=== PATIENT | male | born 2000 | race Hispanic/Latino ===

== ENCOUNTER 2023-08-06 07:07 | Emergency (ER) | payer OTHER ==
[2023-08-06] MEDS ORDERED: ONDANSETRON 4 MG/2 ML VIAL ONE (07:28)
[2023-08-06] MEDS ORDERED: KETOROLAC 30 MG/ML INJ ONE (07:28)
[2023-08-06] MEDS ORDERED: MORPHINE 4 MG/ML SYR ONE (07:29)
[2023-08-06] MEDS ORDERED: NA CHLORIDE 0.9% 1,000 ML ONE (07:29)
--- NOTE | 2023-08-06 07:45 | RAD REPORT ---
EXAM DESCRIPTION: CT - Abdomen Pelvis Wo Contrast - 08/06/2023 7:22 am CLINICAL HISTORY: Abdominal pain /left flank pain COMPARISON: None TECHNIQUE: Computed axial tomography of the abdomen and pelvis was obtained. IV and oral contrast we re not requested. All CT scans are performed using dose optimization technique as appropriate and may include automated exposure control or mA/KV adjustment according to patient size. FINDINGS: The evaluation of solid organs, vessels and bowel is limited secondary to the lack of con trast administration. Mild left hydronephrosis. Left ureter mildly dilated. A 4 millimeter calculus distal left ureter. The liver, spleen, pancreas, adrenals and left kidney appear grossly normal. The appendix is normal. There is no evidence of diverticulitis. Mild compression deformity L1 vertebral body appears chronic. It could be secondary to previous traum a or congenital IMPRESSION: 4 millimeter calculus distal left ureter results in mild left hydronephrosis
[2023-08-06 07:54] LABS: Absolute Eosinophils 0.1 K/uL (0-0.5); Absolute Lymphocytes (CBC) 1.4 K/uL (0.7-4.9); Absolute Monocytes 0.7 K/uL (0.1-1.3); Absolute Neutrophil 12.7 K/uL (1.8-8.0); Basophils % 0.2 % (0-1.3); Eosinophils % 0.5 % (0-4.4); Hemoglobin 16.2 g/dL (13.6-17.9); Lymphocytes % 9.6 % (15.3-44.8); MCH 29.6 pg (27.0-35.0); MCHC 33.7 g/dL (32.0-36.0); MCV 87.7 fL (80-100); MPV 8.4 fL (7.6-11.3); Monocytes % 4.7 % (3.3-12.3); Platelets 327 thou/uL (152-406); RBC Red Blood Cell Count 5.47 M/uL (4.33-5.43); Red Cell Distribution Width 13.4 % (12.1-15.2)
[2023-08-06 08:10] LABS: Albumin 4.4 g/dL (3.4-5.0); Albumin/Globulin Ratio 1.4 (1.1-1.8); Anion Gap 8.6 mEq/L (5.0-15.0); Bilirubin Total 0.9 mg/dL (0.2-1.0); Globulin 3.1 g/dL (2.3-3.5); Potassium 3.6 mEq/L (3.5-5.1); Protein, Total 7.5 g/dL (6.4-8.2)
--- NOTE | 2023-08-06 08:11 | EDPHYS ---
Physician Documentation [facility] Name: Safia Bauer Age: 23 yrs Sex: Male : 2000 Arrival Date: 08/06/2023 Time: 07:07 Bed 8 Private MD: ED Physician Reese Gonzalez HPI: 08/05 07:36 This 23 yrs old Male presents to ER via EMS with complaints of Flank Pain, kathryn Abdominal Pain. 07:36 The patient complains of pain in the right mid back and right low back. The pain kathryn radiates to the right lower quadrant. Onset: The symptoms/episode began/occurred just prior to arrival, this morning. Modifying factors: The symptoms are alleviated by nothing. the symptoms are aggravated by nothing. Associated signs and symptoms: Pertinent positives: nausea, vomiting. Severity of pain: At its worst the pain was moderate severe in the emergency department the pain has improved mildly. The patient has not experienced similar symptoms in the past. Historical: - Allergies: 07:18 No Known Allergies; ld1 - Home Meds: 07:18 None [Active]; ld1 - PMHx: 07:18 None; ld1 - PSHx: 07:18 None; ld1 - Immunization history:: Adult Immunizations up to date. - Infectious Disease History:: Denies. - Social history:: Smoking status: Patient denies any tobacco usage or history of. ROS: 07:39 Constitutional: Negative for fever, chills, and weight loss, Eyes: Negative for injury, kathryn pain, redness, and discharge, ENT: Negative for injury, pain, and discharge, Neck: Negative for injury, pain, and swelling, Cardiovascular: Negative for chest pain, palpitations, and edema, Respiratory: Negative for shortness of breath, cough, wheezing, and pleuritic chest pain, Back: Negative for injury and pain, : Negative for injury, bleeding, discharge, and swelling, MS/Extremity: Negative for injury and deformity, Skin: Negative for injury, rash, and discoloration, Neuro: Negative for headache, weakness, numbness, tingling, and seizure, Psych: Negative for depression, anxiety, suicide ideation, homicidal ideation, and hallucinations, Allergy/Immunology: Negative for hives, rash, and allergies, Endocrine: Negative for neck swelling, polydipsia, polyuria, polyphagia, and marked weight changes, Hematologic/Lymphatic: Negative for swollen nodes, abnormal bleeding, and unusual bruising, 07:39 Abdomen/GI: Positive for abdominal pain, nausea, vomiting, Exam: 07:39 Constitutional: This is a well developed, well nourished patient who is awake, alert, kathryn and in no acute distress. Head/Face: Normocephalic, atraumatic. Eyes: Pupils equal round and reactive to light, extra-ocular motions intact. Lids and lashes normal. Conjunctiva and sclera are non-icteric and not injected. Cornea within normal limits. Periorbital areas with no swelling, redness, or edema. ENT: Nares patent. No nasal discharge, no septal abnormalities noted. Tympanic membranes are normal and external auditory canals are clear. Oropharynx with no redness, swelling, or masses, exudates, or evidence of obstruction, uvula midline. Mucous membranes moist. Neck: Trachea midline, no thyromegaly or masses palpated, and no cervical lymphadenopathy. Supple, full range of motion without nuchal rigidity, or vertebral point tenderness. No Meningismus. Chest/axilla: Normal chest wall appearance and motion. Nontender with no deformity. No lesions are appreciated. Cardiovascular: Regular rate and rhythm with a normal S1 and S2. No gallops, murmurs, or rubs. Normal PMI, no JVD. No pulse deficits. Respiratory: Lungs have equal breath sounds bilaterally, clear to auscultation and percussion. No rales, rhonchi or wheezes noted. No increased work of breathing, no retractions or nasal flaring. Abdomen/GI: Soft, non-tender, with normal bowel sounds. No distension or tympany. No guarding or rebound. No evidence of tenderness throughout. Male : Normal genitalia with no discharge or lesions. Skin: Warm, dry with normal turgor. Normal color with no rashes, no lesions, and no evidence of cellulitis. 07:39 Back: pain, that is moderate, ROM is normal, kyphosis, CVA tenderness, that is mild, is noted on the right, muscle spasm, is not present, Vital Signs: 07:17 BP 137 / 115; Pulse 67; Resp 18; Temp 98.7(TE); Pulse Ox 100% on R/A; Weight 86.18 kg; ld1 Height 5 ft. 10 in. ; Pain 7/10; 07:42 BP 137 / 80; Pulse 71; Resp 18; Pulse Ox 100% on R/A; ph 08:13 BP 129 / 79; Pulse 95; Resp 18; Temp 98; Pulse Ox 99% ; ph 08:41 BP 119 / 76; Pulse 84; Resp 18; Pulse Ox 100% on R/A; Pain 1/10; ld1 07:17 Body Mass Index 27.26 (86.18 kg, 177.8 cm) ld1 07:17 Pain Scale: Adult ld1 08:41 Pain Scale: Adult ld1 MDM: 07:11 Patient medically screened. kathryn 07:40 Differential diagnosis: nephrolithiasis, pyelonephritis, UTI. Data reviewed: vital kathryn signs, nurses notes, lab test result(s), radiologic studies, CT scan. Consideration of Admission/Observation Escalation of care including admission/observation considered. I considered the following discharge prescriptions or medication management in the emergency department Medications were administered in the Emergency Department. See MAR. Test considered but Not performed: Ultrasound no renal usg. Historians other than the Patient: pt well informed. Care significantly affected by the following chronic conditions: none. 08/05 07:11 Order name: CBC with Diff; Complete Time: 08:10 sp4 08/05 07:11 Order name: CMP; Complete Time: 08:11 sp4 08/05 07:11 Order name: Lipase; Complete Time: 08:11 sp4 08/05 07:11 Order name: Urinalysis w/ reflexes sp4 08/05 07:11 Order name: CT Abd/Pelvis - Without Contrast; Complete Time: 08:10 sp4 08/05 07:11 Order name: IV Saline Lock; Complete Time: 07:25 sp4 08/05 07:11 Order name: Labs collected and sent; Complete Time: 07:25 sp4 Administered Medications: 07:48 Drug: NS 0.9% IV 1000 ml IV at 1 bolus Per protocol; 1000 mL bolus Route: IV; Rate: 1 ld1 bolus; Site: left antecubital; 07:48 Drug: TORadol - Ketorolac IVP 15 mg IVP once Route: IVP; Site: left antecubital; ld1 08:13 Follow up: Response: No adverse reaction ph 07:48 Drug: Ondansetron IVP 4 mg IVP once; over 2 minutes Route: IVP; Site: left antecubital; ld1 08:13 Follow up: Response: No adverse reaction ph 07:48 Drug: morphine IVP or IV 4 mg IVP once over 4 mins Route: IVP; Infused Over: 4 mins; ld1 Site: left antecubital; 08:13 Follow up: Response: No adverse reaction ph Disposition Summary: 08/06/23 08:11 Discharge Ordered Notes: Location: Home kathryn Problem: new kathryn Symptoms: have improved kathryn Condition: Stable kathryn Diagnosis - Hydronephrosis with renal and ureteral calculous obstruction - 4 mm distal kathryn left(08/06/23 08:11) - Elevated white blood cell count kathryn Followup: kathryn - With: Private Physician - When: 2 - 3 days - Reason: Recheck today's complaints, Continuance of care, Re-evaluation by your physician Followup: kathryn - With: Daniel Crandall MD - When: 2 - 3 days - Reason: Recheck today's complaints, Re-evaluation by your physician Discharge Instructions: - Discharge Summary Sheet kathryn - Kidney Stones kathryn - Kidney Stones, [id number] kathryn - Hydronephrosis kathryn - Dietary Guidelines to Help Prevent Kidney Stones kathryn Forms: - Medication Reconciliation Form kathryn - Antibiotic Education kathryn - Prescription Opioid Use kathryn - Patient Portal Instructions [facility] - Leadership Thank You Letter [facility] Prescriptions: - acetaminophen-codeine 300-30 mg Oral tablet - take 2 tablet ORAL route every 6 hours; 20 tablet; Refills: 0, Product [facility] Selection Permitted - Flomax 0.4 mg Oral capsule - take 1 capsule ORAL route every 24 hours; 20 capsule; Refills: 0, Product [facility] Selection Permitted - Zofran 4 mg Oral Tablet - take 1 tablet ORAL route every 12 hours As needed; 20 tablet; Refills: 0, [facility] Product Selection Permitted - Cipro 500 mg Oral Tablet - take 1 tablet ORAL route every 12 hours for 7 days; 14 tablet; Refills: 0, [facility] Product Selection Permitted Signatures: Dispatcher [employer] Reese Posada MD MD cha Sims, Lauren RN RN ld1 Temo Capellan MD MD sp4 Sudha Newberry RN ph Corrections: (The following items were deleted from the chart) 07:12 07:11 CBC+H.LAB.BRZ ordered. EDMS EDMS 07:12 07:11 COMPREHENSIVE METABOLIC PANEL+C.LAB.BRZ ordered. EDMS EDMS 07:12 07:11 LIPASE+C.LAB.BRZ ordered. EDMS EDMS 07:12 07:11 Urinalysis+U.LAB.BRZ ordered. EDMS EDMS 07:19 07:18 Allergies: Aspirin; ld1 ld1 08:11 08:11 Hydronephrosis with renal and ureteral calculous obstruction kathryn kathryn
--- NOTE | 2023-08-06 08:11 | ER ---
Nurse's Notes [facility] Name: Safia Bauer Age: 23 yrs Sex: Male : 2000 Arrival Date: 08/06/2023 Time: 07:07 Bed 8 Private MD: Diagnosis: Hydronephrosis with renal and ureteral calculous obstruction-4 mm distal left;Elevated white blood cell count Presentation: 08/05 07:17 Chief complaint: EMS states: Lower L flank pain radiates to abdomen. Coronavirus ld1 screen: At this time, the client does not indicate any symptoms associated with coronavirus-19. Ebola Screen: No symptoms or risks identified at this time. Initial Sepsis Screen: Does the patient meet any 2 criteria? No. Patient's initial sepsis screen is negative. Does the patient have a suspected source of infection? No. Patient's initial sepsis screen is negative. Risk Assessment: Do you want to hurt yourself or someone else? Patient reports no desire to harm self or others. Onset of symptoms was August 06, 2023. 07:17 Method Of Arrival: EMS: [facility] ld1 07:17 Acuity: [place] 3 ld1 Triage Assessment: 07:18 General: Appears in no apparent distress. comfortable, Behavior is calm, cooperative, ld1 appropriate for age. Pain: Complains of pain in left low back Pain radiates to right lower quadrant and left lower quadrant Pain currently is 8 out of 10 on a pain scale. Quality of pain is described as throbbing, Pain began suddenly. EENT: No signs and/or symptoms were reported regarding the EENT system. Neuro: Level of Consciousness is awake, alert, obeys commands, Oriented to person, place, time, situation. Cardiovascular: Capillary refill < 3 seconds Patient's skin is warm and dry. Respiratory: Airway is patent Respiratory effort is even, unlabored. GI: Abdomen is round non-distended. : Reports pain in left flank(s). Derm: No signs and/or symptoms reported regarding the dermatologic system. Musculoskeletal: No signs and/or symptoms reported regarding the musculoskeletal system. Historical: - Allergies: 07:18 No Known Allergies; ld1 - Home Meds: 07:18 None [Active]; ld1 - PMHx: 07:18 None; ld1 - PSHx: 07:18 None; ld1 - Immunization history:: Adult Immunizations up to date. - Infectious Disease History:: Denies. - Social history:: Smoking status: Patient denies any tobacco usage or history of. Screenin:22 [facility] ED Fall Risk Assessment (Adult) History of falling in the last 3 months, ld1 including since admission No falls in past 3 months (0 pts). Abuse screen: Denies threats or abuse. Denies injuries from another. Nutritional screening: No deficits noted. Tuberculosis screening: No symptoms or risk factors identified. Assessment: 07:22 Reassessment: See triage assessment. ld1 08:13 Reassessment: Patient appears in no apparent distress at this time. Patient and/or ph family updated on plan of care and expected duration. Pain level reassessed. Patient is alert, oriented x 3, equal unlabored respirations, skin warm/dry/pink. Vital Signs: 07:17 BP 137 / 115; Pulse 67; Resp 18; Temp 98.7(TE); Pulse Ox 100% on R/A; Weight 86.18 kg; ld1 Height 5 ft. 10 in. ; Pain 7/10; 07:42 BP 137 / 80; Pulse 71; Resp 18; Pulse Ox 100% on R/A; ph 08:13 BP 129 / 79; Pulse 95; Resp 18; Temp 98; Pulse Ox 99% ; ph 08:41 BP 119 / 76; Pulse 84; Resp 18; Pulse Ox 100% on R/A; Pain 1/10; ld1 07:17 Body Mass Index 27.26 (86.18 kg, 177.8 cm) ld1 07:17 Pain Scale: Adult ld1 08:41 Pain Scale: Adult ld1 ED Course: 07:10 Patient arrived in ED. ld1 07:11 Reese Gonzalez MD is Attending Physician. kathryn 07:18 Triage completed. ld1 07:18 Arm band placed on right wrist. ld1 07:22 Patient has correct armband on for positive identification. Placed in gown. Bed in low ld1 position. Call light in reach. Side rails up X2. lumber material handler on. Pulse ox on. NIBP on. Door closed. Noise minimized. Warm blanket given. 07:22 No provider procedures requiring assistance completed. ld1 07:23 CT Abd/Pelvis - Without Contrast In Process Unspecified. EDMS 07:25 Huynh, Joslyn, RN is Primary Nurse. ld1 07:42 Urinalysis w/ reflexes Sent. ld1 07:49 Inserted saline lock: 20 gauge in left antecubital area, using aseptic technique. Blood ld1 collected. 08:10 Daniel Crandall MD is Referral Physician. [facility] 08:41 IV discontinued, intact, bleeding controlled, No redness/swelling at site. ld1 Administered Medications: 07:48 Drug: NS 0.9% IV 1000 ml IV at 1 bolus Per protocol; 1000 mL bolus Route: IV; Rate: 1 ld1 bolus; Site: left antecubital; 07:48 Drug: TORadol - Ketorolac IVP 15 mg IVP once Route: IVP; Site: left antecubital; ld1 08:13 Follow up: Response: No adverse reaction ph 07:48 Drug: Ondansetron IVP 4 mg IVP once; over 2 minutes Route: IVP; Site: left antecubital; ld1 08:13 Follow up: Response: No adverse reaction ph 07:48 Drug: morphine IVP or IV 4 mg IVP once over 4 mins Route: IVP; Infused Over: 4 mins; ld1 Site: left antecubital; 08:13 Follow up: Response: No adverse reaction ph Medication: 07:22 VIS not applicable for this client. ld1 Outcome: 08:11 Discharge ordered by . kathryn 08:41 Discharged to home ambulatory, ld1 08:41 Condition: stable 08:41 Discharge instructions given to patient, Instructed on discharge instructions, follow up and referral plans. medication usage, Demonstrated understanding of instructions, follow-up care, medications, Prescriptions given X 4, 08:41 Patient left the ED. ld1 Signatures: Dispatcher [employer] [facility] Reese Gonzalez MD MD cha Hall, Patricia, RN RN ph Joslyn Huynh, LISANDRO RN ld1 Corrections: (The following items were deleted from the chart) 07:19 07:18 Allergies: Aspirin; ld1 ld1
[2023-08-06 08:15] LABS: Calcium Oxalate Crystals- Ur Few /HPF (None Seen); Specific Gravity > 1.030 (1.005-1.030); Sqamous Epithelial <5 /HPF (None Seen); Urine Bacteria <20 /HPF (<20); Urine Bilirubin NEGATIVE (Negative); Urine Blood 3+ (OVER) (Negative); Urine Clarity Extremely Turbid (Clear); Urine Color Yellow (Yellow); Urine Culture Reflex Order NOT NEEDED; Urine Glucose NEGATIVE (Negative); Urine Ketones 2+ (Negative); Urine Microscopic Reflex YN ORDER UMIC; Urine Mucus 4+ /HPF (None Seen); Urine Nitrite NEGATIVE (Negative); Urine Protein 2+ (Negative); Urine RBC >50 /HPF (None Seen); Urine Urobilinogen 1+ (Normal); Urine WBC <5 /HPF (<5); Urine pH 6.5 (5.0-7.0)
[2023-08-06] MEDS ORDERED: CEFTRIAXONE 1000 MG/VIAL ONE (08:17)
[2023-08-06] MEDS ORDERED: TAMSULOSIN 0.4 MG SR CAP ONE (08:17)
[2023-08-06 09:04] VITALS: BP 119/76; TEMP 98; O2SAT 100
== END 2023-08-06 08:41 | disposition home or self-care (01) ==
LOC: ER 07:07
DX: N13.2 Hydronephrosis with renal and ureteral calculous obstruction (principal); D72.829 Elevated white blood cell count, unspecified
CPT/HCPCS: 85025; 81001; 36415; 83690; 80053; 74176; 96375; 96374; 99285; J2405; J7030; J0696